=== PATIENT | female | born 1980 | race Caucasian/White ===

== ENCOUNTER 2017-04-02 17:56 | Inpatient (IN) | payer MEDICAID ==
[~2017-04-02] VITALS: Ht 154.9 cm; Wt 66.8 kg
[~2017-04-02 17:56] MED LIST: HYDR-906 PO; OMEP20CA16 PO
[2017-04-02 18:02] VITALS: Ht 154.9 cm; Wt 66.8 kg
[2017-04-02 18:04] VITALS: BP 125/73; PULSE 85; RESP 20
--- NOTE | 2017-04-02 18:58 | RADRPT ---
PROCEDURE: US OB biophysical profile. CLINICAL INDICATION: evaluation TECHNIQUE: Multiple sonographic images of the pelvis were obtained. The images were reviewed on a PACS workstation. COMPARISON: No prior studies are available for comparison. FINDINGS: There is a single viable intrauterine gestation. Cardiac activity is present with 161 beats per min britany. There is a transverse presentation to maternal left. The placenta is right lateral in location. There is no evidence of placental abruption. There is a normal amount of amniotic fluid with an DANIEL = 16.3 cm. Biophysical profile: movement 2/2 tone 2/2. breathing 2/2 DANIEL 2/2 Total 05/13 RPTAT: AA . IMPRESSION: Normal biophysical profile. Physician Linda Date Time Electronically viewed and signed by Physician Linda on 04/02/2017 18:57 /
[2017-04-02] MEDS ORDERED: LACTATED RINGER'S 1,000 ML IV SCH (19:27)
[2017-04-02] MEDS ORDERED: CARBOPROST 250 MCG INJ IM PRN ×2 (19:30→20:00)
[2017-04-02] MEDS ORDERED: CEFAZOLIN 2 GM/50 ML (PMX) 50 ML IV SCH ×2 (19:30→20:00)
[2017-04-02] MEDS ORDERED: OXYTOCIN 30 UNITS/LR 500 ML IV PRN ×2 (19:30→20:00)
[2017-04-02] MEDS ORDERED: MISOPROSTOL 200 MCG TAB PR PRN ×2 (19:30→20:00)
[2017-04-02] MEDS ORDERED: METHYLERGONOVINE 0.2 MG INJ IM PRN ×2 (19:30→20:00)
[2017-04-02] MEDS ORDERED: OXYTOCIN 30 UNITS/LR 500 ML IV SCH ×2 (19:30→20:00)
[2017-04-02] MEDS: LACTATED RINGER'S 1,000 ML IV SCH ×2 (19:56→21:33)
[2017-04-02 20:08] LABS: ADD SCAN DIFF NO
[2017-04-02 20:09] LABS: BASOPHILS % 0.4 % (0.0-2.0); EOSINOPHILS # 0.1 10^3/ul (0.0-0.5); EOSINOPHILS % 0.9 % (0.0-7.0); HEMATOCRIT 35.9 % (37.0-47.0); LYMPHOCYTES # 1.7 10^3/ul (0.8-2.9); LYMPHOCYTES % 30.3 % (15.0-51.0); MEAN CORPUSCULAR HEMOGLOBIN 28.8 pg (29.0-33.0); MEAN CORPUSCULAR HGB CONC 33.4 g/dl (32.0-37.0); MEAN CORPUSCULAR VOLUME 86.1 fl (82.0-101.0); MEAN PLATELET VOLUME 11.9 fl (7.4-10.4); MONOCYTE # 0.5 10^3/ul (0.3-0.9); MONOCYTES % 8.3 % (0.0-11.0); NEUTROPHIL # 3.3 10^3/ul (1.6-7.5); NEUTROPHILS % 58.2 % (39.0-77.0); PLATELET COUNT 200 10^3/UL (140-415); RED BLOOD COUNT 4.17 10^6/ul (4.20-5.40); RED CELL DISTRIBUTION WIDTH 15.2 % (11.5-14.5); WHITE BLOOD COUNT 5.7 10^3/ul (4.8-10.8)
[2017-04-02 20:37] LABS: INR 0.91; PROTIME 12.2 Sec (12.2-14.2)
[2017-04-02 20:38] LABS: PARTIAL THROMBOPLASTIN TIME 30.1 Sec (25.0-35.0)
[2017-04-02 20:45] LABS: ALBUMIN 3.4 g/dl (3.3-4.9); ALBUMIN/GLOBULIN RATIO 1.17; BILIRUBIN,INDIRECT 0.2 mg/dl (0-1.1); BILIRUBIN,TOTAL 0.2 mg/dl (0.2-1.3); CALCIUM 9.1 mg/dl (8.4-10.2); CREATININE 0.46 mg/dl (0.44-1.00); POTASSIUM 3.8 mmol/L (3.5-5.1); TOTAL PROTEIN 6.3 g/dl (6.1-8.1)
[2017-04-02] MEDS ORDERED: LACTATED RINGER'S 1,000 ML IV ONE (21:02)
[2017-04-02] MEDS ORDERED: FAMOTIDINE 20 MG INJ IV ONE (21:30)
[2017-04-02] MEDS ORDERED: CITRIC ACID/SODIUM CITRATE 15 ML CUP PO ONE (21:30)
[2017-04-02] MEDS ORDERED: METOCLOPRAMIDE 10 MG INJ IV ONE (21:30)
[2017-04-02] MEDS ORDERED: OXYTOCIN 30 UNITS/LR 500 ML IV ONE ×2 (21:59→22:33)
[2017-04-02] MEDS ORDERED: morphine SULFATE/PF (10 MG/10 ML) INJ ONE (21:59)
[2017-04-02] MEDS ORDERED: FENTAnyl 50 MCG/ML VIAL ONE (21:59)
--- NOTE | 2017-04-02 22:04 | HP ---
Date/Time of Note Date/Time of Note DATE: 04/02/17 TIME: 22:03 OB - History Hx of Present Free Text/Dictation 36 weeks with ROM and labor in transverse lie Care: Good Care Ultrasounds: No ultrasounds, Normal mid trimester US Obstetrical Complications: None Medical Complications: None Past Family/Social History * Past Medical, Surgical, Family and Obstetric Histories reviewed from chart. OB Admission Exam Vital Signs Vital Signs Vital Signs Date Time Temp Pulse Resp B/P Pulse Ox O2 Delivery O2 Flow Rate FiO2 04/02/17 18:04 98.4 85 20 125/73 Room Air Physical Exam HEENT: WNL Heart: Rhythm Normal Lungs: Clear, Equal Abdomen: WNL Extremities: Normal Reflexes: Normal Cervical Dilatation: 1cm Effacement: 0% Station: -2 Membranes: Ruptured Amniotic Fluid: Clear Last 72 hours Lab Results CBC & BMP 04/02/17 19:35 Liver Function Test 04/02/17 19:35 Alanine Aminotransferase (ALT/SGPT) 84 H Albumin 3.4 Alkaline Phosphatase 462 H Aspartate Amino Transf (AST/SGOT) 57 H Direct Bilirubin 0.00 Total Protein 6.3 OB Assessment/Plan Reason for admission: active labor Plan: Section KRISTIN MARKS MD Apr 02, 2017 22:04
--- NOTE | 2017-04-02 22:07 | OPR ---
Operative Report Planned Procedure Free Text/Dictation 36 weeks with ROM and transverse lie in labor Procedure date Apr 02, 2017 Performed by: KRISTIN MARKS MD Assisting provider: NOHEMY VILLASEÑOR MD Anesthesia Type: spinal Procedure Description Under satisfactory spinal anesthesia, the patient was prepped and draped and placed in a supine position, tilted to the left. Pfannenstiel incision was made , carried through the subcutaneous tissue. Bleeders brought under control with electrocautery. Fascia incised to the length of the incision. Rectus muscles from the fascia, divided midline. Peritoneum exposed, entered through a transverse incision. Exploration of abdomen revealed gravid uterus. Bladder flap was developed. Transverse incision was made in the lower segment of the uterus. Amniotic sac ruptured. clear] amniotic fluid noted. [] Nasal oropharyngeal suction was performed. The baby was handed to the team for immediate attention. The placenta was delivered manually intact. Uterine cavity was cleaned with wet sponge and drainage established. Uterus closed in 2 layers using [one monocryl] in continuous fashion. Peritoneal cavity irrigated with warm saline. Sponge, needle and instrument count reported to be correct. Fascia closed with [one monocryl], and skin closed with robi. Estimated blood loss [700]mL. Post-Procedure Findings: Live Baby [], Apgars [] and [], weight [], position [], [] presentation []cord. Specimen removed: Yes Complications: None Pt Condition post procedure: stable Physician Certification I, the undersigned physician, hereby certify that I have discussed the procedure described in this consent form with this patient (or the patient's legal route sales representative), including: * The risk and benefits of the procedure; * Any adverse reactions that may reasonably be expected to occur; * Any alternative efficacious methods of treatment which may be medically viable ; * The potential problems that may occur during recuperation; * Potential for blood transfusion and associated risks/benefits; and * Any research or economic interest I may have regarding this treatment. I further certify that the patient/legally responsible person was encouraged to ask question and that all questions were answered. KRISTIN MARKS MD Apr 02, 2017 22:06
[2017-04-02] MEDS ORDERED: EPHEDrine SULFATE 50 MG/5 ML SYG ONE (22:12)
[2017-04-02] MEDS ORDERED: ONDANSETRON 4 MG INJ ONE (22:14)
[2017-04-02] MEDS ORDERED: HYDROmorphONE (0.2 MG/ML) 10ML SYG IV PRN (22:30)
[2017-04-02] MEDS ORDERED: KETOROLAC 30 MG INJ IV PRN (22:30)
[2017-04-02] MEDS ORDERED: ONDANSETRON 4 MG INJ IV PRN (22:30)
[2017-04-02] MEDS ORDERED: PROCHLORPERAZINE 10 MG INJ IV PRN (22:30)
[2017-04-02] MEDS ORDERED: DIPHENHYDRAMINE 50 MG INJ IV PRN (22:30)
[2017-04-02] MEDS ORDERED: MEPERIDINE 25 MG INJ IV PRN (22:30)
[2017-04-02] MEDS ORDERED: FENTAnyl 50 MCG/ML VIAL IV PRN (22:30)
[2017-04-02] MEDS ORDERED: PHENYLephrine (100 MCG/ML) 5ML SYG ONE (22:31)
[2017-04-03] MEDS ORDERED: ONDANSETRON 4 MG INJ IV PRN
[2017-04-03] MEDS ORDERED: DIPHENHYDRAMINE 50 MG INJ IV PRN
[2017-04-03] MEDS ORDERED: ZOLPIDEM 5 MG TAB PO PRN
[2017-04-03] MEDS ORDERED: NALOXONE (0.4 MG/ML) INJ IV PRN
[2017-04-03] MEDS ORDERED: HYDROmorphONE 1 MG/ML SYG IV PRN ×4
[2017-04-03] MEDS ORDERED: PROCHLORPERAZINE 10 MG INJ IV PRN
[2017-04-03 01:06] LABS: BARBITURATES NEGATIVE (NEGATIVE); BENZODIAZEPINES NEGATIVE (NEGATIVE); CANNABINOIDS NEGATIVE (NEGATIVE); COCAINE NEGATIVE (NEGATIVE); OPIATES NEGATIVE (NEGATIVE)
--- NOTE | 2017-04-03 01:35 | DELSUM ---
Delivery Summary A-C Datetime Report Generated by CPN: 04/03/2017 01:35 DELIVERY PERSONNEL Pot Builder: Harry, Nancy MATERNAL INFORMATION Delivery Anesthesia: Spinal Medications in Delivery: SEE ANESTHESIA RECORDS Estimated Blood Loss (ml): 650 Placenta Cultured: No Maternal Complications: Other Other Maternal Complications: GDM DIET CONTROL LABOR SUMMARY EDC: 04/24/2017 00:00 No. Babies in Womb: 1 Attempted: No Labor Anesthesia: None LABOR INFORMATION Reason for Induction: Not Applicable Onset of Labor: 04/02/2017 18:00 Oxytocin: N/A Group B Beta Strep: UNKNOWN Antibiotics # of Doses: ANCEF 2 GRAMS Antibiotics Time of Last Dose: 04/02/2017 22:02 Steroids Given: None Reason Steroids Not Administered: Not Applicable MEMBRANES Membranes Rupture Method: Spontaneous Rupture of Membranes: 04/02/2017 17:30 Length of Rupture (hr): 4.95 Amniotic Fluid Color: Clear Amniotic Fluid Amount: Moderate Amniotic Fluid Odor: None STAGES OF LABOR Stage 3 hr: 0 Stage 3 min: 1 Total Time in Labor hr: 4 Total Time in Labor min: 28 CSECTION DELIVERY Primary Indication: TRANSVERSE PRENSENTATION Other Primary Indication: SROM @36.6 WEEKS Secondary Indication: N/A CSection Urgency: Elective CSection Incidence: Primary Labor: N/A Elective: N/A CSection Incision: Lower Uterine Transverse BABY A INFORMATION Delivery Date/Time: 04/02/2017 22:27 Method of Delivery: Born in Route : No : N/A Forceps: N/A Vacuum Extraction: N/A Shoulder Dystocia : No SHOULDER DYSTOCIA BABY A Infant Delivery Date/Time: 04/02/2017 22:27 PRESENTATION/POSITION BABY A Presentation: TRANSVERSE Cephalic Presentation: N/A Breech Presentation: N/A PLACENTA INFORMATION BABY A Placenta Delivery Time : 04/02/2017 22:28 Placenta Method of Delivery: Manual Removal Placenta Status: Delivered SCORES BABY A Heart Rate 1 min: >100 bpm Resp Effort 1 min: Good Cry Reflex Irritability 1 min: Cough/Sneeze/Pulls Away Muscle Tone 1 min: Active Motion Color 1 min: Blue/Pale Resuscitation Effort 1 min: Tactile Stimulation SCORE 1 MIN: 8 Heart Rate 5 min: >100 bpm Resp Effort 5 min: Good Cry Reflex Irritability 5 min: Cough/Sneeze/Pulls Away Muscle Tone 5 min: Active Motion Color 5 min: Body [place], Extremit Blue Resuscitation Effort 5 min: Tactile Stimulation SCORE 5 MIN: 9 INFORMATION BABY A Gestational Age at Delivery: 36.6 Gestational Status: Late - 34- 36.6 Weeks Outcome : Liveborn Infant Condition : Stable Infant Sex: Male IDENTIFICATION/MEDS BABY A ID Band Number: [id number] Sensor Applied: Yes Sensor Number: [id number] Sensor Location : Cord Clamp Vitamin K Given : Not Given Erythromycin Given: Not Given WEIGHT/LENGTH BABY A Infant Birthweight (gm): 3225 Weight (lb): 7 Infant Weight (oz): 2 Infant Length (in): 20.50 Length (cm): 52.07 CORD INFORMATION BABY A No. Cord Vessels: 3 Nuchal Cord : N/A Cord Blood Taken: Yes Infant Suction: Mouth; Nose ASSESSMENT BABY A Infant Complications: None Physical Findings at Delivery: Within Normal Limits Physical Findings- Other: voided x2 Respirations: Appears Normal Vacuum Worker/ALS Called : No Infant Care By: Sandra ESPINAL RN Transferred To: Remains with Mother
[2017-04-03 01:50] VITALS: BP 127/72; PULSE 68; RESP 18
[2017-04-03] MEDS ORDERED: NACL 0.9% 3 ML SYG IV SCH (02:00)
[2017-04-03] MEDS ORDERED: METHYLERGONOVINE 0.2 MG INJ IM PRN (02:00)
[2017-04-03] MEDS ORDERED: NA PHOSPHATE/BIPHOS 133 ML ENEMA PR PRN (02:00)
[2017-04-03] MEDS ORDERED: LANOLIN 7 GM TUBE TOP PRN (02:00)
[2017-04-03] MEDS ORDERED: OXYTOCIN 30 UNITS/LR 500 ML IV PRN (02:00)
[2017-04-03] MEDS ORDERED: MISOPROSTOL 200 MCG TAB PR PRN (02:00)
[2017-04-03] MEDS ORDERED: CARBOPROST 250 MCG INJ IM PRN (02:00)
[2017-04-03 04:00] VITALS: BP 129/63; PULSE 64; RESP 18
[2017-04-03] MEDS: OXYTOCIN 30 UNITS/LR 500 ML IV SCH ×2 (05:10→05:32)
[2017-04-03] MEDS: KETOROLAC 30 MG INJ IV PRN ×2 (05:59→18:19)
--- NOTE | 2017-04-03 06:15 | QN ---
Documentation Comment doing well vss abd soft cpm KRISTIN MARKS MD Apr 03, 2017 06:14
[2017-04-03 08:00] VITALS: BP 121/78; PULSE 66; RESP 18
[2017-04-03 08:08] LABS: ADD SCAN DIFF NO
[2017-04-03 08:16] LABS: BASOPHILS % 0.3 % (0.0-2.0); HEMATOCRIT 32.9 % (37.0-47.0); HEMOGLOBIN 10.9 g/dl (12.0-16.0); LYMPHOCYTES # 1.2 10^3/ul (0.8-2.9); LYMPHOCYTES % 11.7 % (15.0-51.0); MEAN CORPUSCULAR HEMOGLOBIN 29.1 pg (29.0-33.0); MEAN CORPUSCULAR HGB CONC 33.1 g/dl (32.0-37.0); MEAN CORPUSCULAR VOLUME 87.7 fl (82.0-101.0); MEAN PLATELET VOLUME 12.1 fl (7.4-10.4); MONOCYTE # 0.5 10^3/ul (0.3-0.9); MONOCYTES % 4.8 % (0.0-11.0); NEUTROPHIL # 8.7 10^3/ul (1.6-7.5); NEUTROPHILS % 82.5 % (39.0-77.0); PLATELET COUNT 182 10^3/UL (140-415); RED BLOOD COUNT 3.75 10^6/ul (4.20-5.40); RED CELL DISTRIBUTION WIDTH 14.9 % (11.5-14.5); WHITE BLOOD COUNT 10.5 10^3/ul (4.8-10.8)
[2017-04-03] MEDS: LACTATED RINGER'S 1,000 ML IV SCH ×4 (09:32→21:02)
[2017-04-03 12:00] VITALS: BP 95/56; PULSE 65; RESP 16
[2017-04-03 16:00] VITALS: BP 103/58; PULSE 71
[2017-04-03 19:40] VITALS: BP 99/58; PULSE 79; RESP 18
[2017-04-03] MEDS: IBUPROFEN 800 MG TAB PO SCH (22:00)
[2017-04-03] MEDS ORDERED: ACETAMINOPHEN/CODEINE #3 TAB PO PRN (22:10)
[2017-04-04] MEDS: OXYCODONE/ACETAMINOPHEN (5/325) TAB PO PRN ×3 (01:48→16:49)
[2017-04-04 03:55] VITALS: BP 112/58; PULSE 66; RESP 20
[2017-04-04] MEDS: IBUPROFEN 800 MG TAB PO SCH ×3 (05:53→20:14)
[2017-04-04 08:00] VITALS: BP 108/66; PULSE 57; RESP 18
[2017-04-04] MEDS: LACTATED RINGER'S 1,000 ML IV SCH ×2 (09:32→17:32)
--- NOTE | 2017-04-04 09:51 | PN ---
Date/Time of Note Date/Time of Note DATE: 04/04/17 TIME: 09:48 OB Subjective Subjective Subjective April 04, 2017 Hospital visit Post day 2 Patient is doing well, Ambulatory She is afebrile Abdomen is soft , Fundus is firm Moderate amount of lochia Breasts are soft, Nipples are intact No calf tenderness. Incision is healing well Breast feeding the new born. Current Medications Medications (Trade) Dose Ordered Sig/Chris Route PRN Reason Start Time Stop Time Status Last Admin Dose Admin Lactated Ringer's 1,000 ml @ 125 mls/hr Q8H IV 04/02/17 19:27 04/02/17 19:46 DC Cefazolin Sodium/ Dextrose 50 ml @ 100 mls/hr ONCE IV 04/02/17 19:30 04/02/17 19:46 DC Oxytocin/Lactated Ringer's 500 ml @ 125 mls/hr ONCE IV 04/02/17 19:30 04/02/17 19:46 DC Oxytocin/Lactated Ringer's 500 ml @ 0 mls/hr ONCE PRN IV For Hemorrhage Management 04/02/17 19:30 04/02/17 19:46 DC Methylergonovine Maleate (Methergine) 0.2 mg ONCE PRN IM VAGINAL BLEEDING 04/02/17 19:30 04/02/17 19:46 DC Carboprost Tromethamine (Hemabate) 250 mcg ONCE PRN IM VAGINAL BLEEDING 04/02/17 19:30 04/02/17 19:46 DC Misoprostol 1000 mcg 1,000 mcg ONCE PRN ND VAGINAL BLEEDING 04/02/17 19:30 04/02/17 19:46 DC Lactated Ringer's 1,000 ml @ 125 mls/hr Q8H IV 04/02/17 19:48 04/03/17 01:36 DC 04/02/17 21:33 Cefazolin Sodium/ Dextrose 50 ml @ 100 mls/hr ONCE IV 04/02/17 20:00 04/03/17 01:36 DC Oxytocin/Lactated Ringer's 500 ml @ 125 mls/hr ONCE IV 04/02/17 20:00 04/03/17 01:36 DC 04/03/17 00:06 Oxytocin/Lactated Ringer's 500 ml @ 0 mls/hr ONCE PRN IV For Hemorrhage Management 04/02/17 20:00 04/03/17 01:36 DC Methylergonovine Maleate (Methergine) 0.2 mg ONCE PRN IM VAGINAL BLEEDING 04/02/17 20:00 04/03/17 01:37 DC Carboprost Tromethamine (Hemabate) 250 mcg ONCE PRN IM VAGINAL BLEEDING 04/02/17 20:00 04/03/17 01:37 DC Misoprostol 1000 mcg 1,000 mcg ONCE PRN ND VAGINAL BLEEDING 04/02/17 20:00 04/03/17 01:37 DC Lactated Ringer's (Lr) 1,000 ml @ 1,000 mls/hr Q1H ONCE IV 04/02/17 21:02 04/02/17 22:01 DC 04/02/17 21:34 Citric Acid/ Sodium Citrate (Bicitra) 30 ml PRE-PROCEDURE ONCE PO 04/02/17 21:30 04/02/17 21:31 DC 04/02/17 21:51 Famotidine (Pepcid Iv) 20 mg pre-procedure ONCE IV 04/02/17 21:30 04/02/17 21:31 DC 04/02/17 21:51 Metoclopramide HCl 10 mg 10 mg ONCE ONCE IV 04/02/17 21:30 04/02/17 21:31 DC 04/02/17 21:51 Oxytocin/Lactated Ringer's 500 ml @ ud STK-MED ONCE IV 04/02/17 21:59 04/02/17 22:00 DC Fentanyl (Sublimaze) 100 mcg STK-MED ONCE .ROUTE 04/02/17 21:59 04/02/17 22:00 DC Morphine Sulfate (Duramorph) 10 mg STK-MED ONCE .ROUTE 04/02/17 21:59 04/02/17 22:00 DC Ephedrine Sulfate 50 mg STK-MED ONCE .ROUTE 04/02/17 22:12 04/02/17 22:13 DC Ondansetron HCl (Zofran Inj) 4 mg STK-MED ONCE .ROUTE 04/02/17 22:14 04/02/17 22:15 DC Hydromorphone HCl (Dilaudid (Rec)) 0.4 mg PACU ORDER PRN IV PAIN 04/02/17 22:30 04/03/17 01:36 DC Fentanyl (Sublimaze) 25 mcg PACU ORDER PRN IV PAIN 04/02/17 22:30 04/03/17 01:36 DC Ketorolac Tromethamine (Toradol) 30 mg PACU ORDER PRN IV PAIN 04/02/17 22:30 04/03/17 01:36 DC 04/03/17 00:26 Ondansetron HCl (Zofran Inj) 4 mg PACU ORDER PRN IV NAUSEA AND/OR VOMITING 04/02/17 22:30 04/03/17 01:37 DC 04/03/17 01:32 Prochlorperazine (Compazine Inj) 5 mg PACU ORDER PRN IV NAUSEA AND/OR VOMITING 04/02/17 22:30 04/03/17 01:37 DC Meperidine HCl (Demerol) 25 mg PACU ORDER PRN IV POST-OP RIGORS 04/02/17 22:30 04/03/17 01:37 DC Diphenhydramine HCl (Benadryl) 25 mg PACU ORDER PRN IV PRURITUS 04/02/17 22:30 04/03/17 01:37 DC Phenylephrine HCl 500 mcg 500 mcg STK-MED ONCE .ROUTE 04/02/17 22:31 04/02/17 22:32 DC Oxytocin/Lactated Ringer's 500 ml @ ud STK-MED ONCE IV 04/02/17 22:33 04/02/17 22:34 DC Naloxone HCl (Narcan) 0.1 mg Q2M PRN IV FOR RESP RATE 8 OR LESS 04/03/17 00:00 04/03/17 22:09 DC Ketorolac Tromethamine (Toradol) 30 mg Q6H PRN IV PAIN 04/03/17 00:00 04/03/17 22:09 DC 04/03/17 18:19 Hydromorphone HCl (Dilaudid) 0.2 mg Q3H PRN IV PAIN LEVEL 1-5 04/03/17 00:00 04/03/17 00:00 DC Hydromorphone HCl (Dilaudid) 0.4 mg Q3H PRN IV PAIN LEVEL 6-10 04/03/17 00:00 04/03/17 00:00 DC Diphenhydramine HCl (Benadryl) 25 mg Q6H PRN IV ITCHING 04/03/17 00:00 04/03/17 22:09 DC Ondansetron HCl (Zofran Inj) 4 mg Q6H PRN IV NAUSEA AND/OR VOMITING 04/03/17 00:00 04/03/17 22:09 DC Prochlorperazine (Compazine Inj) 10 mg ONCE PRN IV NAUSEA AND/OR VOMITING 04/03/17 00:00 04/03/17 22:09 DC Zolpidem Tartrate (Ambien) 5 mg HS MAY REPEAT X 1 PRN PO INSOMNIA 04/03/17 00:00 04/03/17 22:09 DC Miscellaneous Information (* Miscellaneous Pharmacy Order) Duramorph: 0.2 mg Spi... GIVEN XX 04/03/17 00:00 04/03/17 01:36 DC Hydromorphone HCl (Dilaudid) 0.4 mg Q3H PRN IV PAIN LEVEL 1-5 04/03/17 00:00 04/03/17 22:09 DC Hydromorphone HCl 0.6 mg 0.6 mg Q3H PRN IV PAIN LEVEL 6-10 04/03/17 00:00 04/03/17 22:09 DC Lactated Ringer's (Lr) 1,000 ml @ 125 mls/hr Q8H IV 04/03/17 01:32 04/03/17 21:02 IV Flush 3 ml 3 ml PER PROTOCOL IV 04/03/17 02:00 Oxytocin/Lactated Ringer's 500 ml @ 125 mls/hr Q4H IV 04/03/17 01:32 04/03/17 09:31 DC 04/03/17 05:10 Acetaminophen/ Codeine Phosphate (Tylenol No.3) 2 tab Q4H PRN PO PAIN LEVEL 7-10 04/03/17 22:10 Oxycodone/ Acetaminophen (Percocet (5/ 325)) 2 tab Q4H PRN PO PAIN LEVEL 7-10 04/03/17 22:10 04/04/17 01:48 Ibuprofen (Motrin) 800 mg Q8 PO 04/03/17 22:00 04/04/17 05:53 Simethicone (Mylicon) 160 mg Q8H PRN PO DISTENSION/GAS/BLOATING 04/03/17 02:00 Sodium Biphosphate/ Sodium Phosphate (Fleet Enema) 133 ml DAILY PRN ND CONSTIPATION 04/03/17 02:00 Lanolin (Ktv-Q-Llrpat) 1 applic BEDSIDE MEDICATION PRN TOP BEDSIDE FOR LARRY TO NIPPLES 04/03/17 02:00 Diphtheria/ Tetanus/Acell Pertussis (Adacel) 0.5 ml ONCE ONCE IM* 04/05/17 09:00 04/05/17 09:01 Measles/Mumps/ Rubella Vaccine Live 0.5 ml 0.5 ml ONCE ONCE SC* 04/05/17 09:00 04/05/17 09:01 Oxytocin/Lactated Ringer's 500 ml @ 0 mls/hr ONCE PRN IV For Hemorrhage Management 04/03/17 02:00 Methylergonovine Maleate (Methergine) 0.2 mg ONCE PRN IM VAGINAL BLEEDING 04/03/17 02:00 Carboprost Tromethamine (Hemabate) 250 mcg ONCE PRN IM VAGINAL BLEEDING 04/03/17 02:00 Misoprostol (Cytotec) 1,000 mcg ONCE PRN ND VAGINAL BLEEDING 04/03/17 02:00 MAGUE MANSFIELD MD Apr 04, 2017 09:51
[2017-04-04 12:03] LABS: RUBELLA ANTIBODY - IGG 4.36 index
[2017-04-04 16:00] VITALS: BP 106/61; PULSE 60; RESP 18
[2017-04-04] MEDS: SENNA TAB PO SCH (20:14)
[2017-04-04 20:30] VITALS: BP 122/81; PULSE 67; RESP 18
[2017-04-05] MEDS: OXYCODONE/ACETAMINOPHEN (5/325) TAB PO PRN (00:44)
[2017-04-05] MEDS: IBUPROFEN 800 MG TAB PO SCH ×2 (05:04→11:54)
[2017-04-05 05:27] VITALS: BP 95/56; PULSE 61; RESP 18
[2017-04-05] MEDS: LACTATED RINGER'S 1,000 ML IV SCH (05:37)
[2017-04-05 08:00] VITALS: BP 114/68; PULSE 71; RESP 18
[2017-04-05] MEDS ORDERED: MEASLES,MUMPS,RUBELLA VACCINE INJ SC* ONE (09:00)
[2017-04-05] MEDS ORDERED: DIPHTH/TET/ACEL PERTUSS (ADULT) 0.5 ML VIAL IM* ONE (09:00)
[2017-04-05] MEDS: SENNA TAB PO SCH (09:36)
--- NOTE | 2017-04-05 13:58 | QN ---
Documentation Comment POD#3 is stable afebrile tolerates diet No VB +Voids +BM VS stable Gen NAD Abd soft NT ND incision is healing well Genitalia No blood at perinium --->discharge plan tomorrow --->ambulation ARTI MONDRAGON M.D. Apr 05, 2017 13:58
--- NOTE | 2017-04-05 13:59 | DS ---
Date/Time of Note Date/Time of Note DATE: 04/05/17 TIME: 13:58 Discharge Summary Admission/Discharge Info Admit Date/Time Apr 02, 2017 at 19:04 Discharge Date/Time Discharge Diagnosis post c/ection Patient Condition: Stable Procedures Repeat c/section Hospital Course uneventful Home Meds Active Scripts Hydrocodone/Acetaminophen (Eleele 5-325 Tablet) 1 Each Tablet, 1 TAB PO Q6H Y for PAIN, #7 TAB Prov:YESSENIA SANTIAGO PA-C 07/13/16 Reported Medications Omeprazole* (Omeprazole*) 20 Mg Capsule., 20 MG PO DAILY, CAP 11/23/14 Primary Care Provider Not On Staff Doctor ARTI MONDRAGON M.D. Apr 05, 2017 13:59
== END 2017-04-05 16:00 | disposition home or self-care (01) | DRG 766 ==
LOC: OBT 17:56 → L-D 17:57 → OBT 19:04 → L-D 19:04 → PP1 04-03 01:53
PROVIDERS: ADMIT Obstetrics & Gynecology; ATTEND Obstetrics & Gynecology
PROC: 10D00Z1 Extraction of Products of Conception, Low, Open Approach (ICD-10-PCS; principal; 2017-04-02 22:00)
DX: O60.14X0 Preterm labor third trimester with preterm delivery third trimester, not applicable or unspecified (principal); O32.2XX0 Maternal care for transverse and oblique lie, not applicable or unspecified; Z3A.36 36 weeks gestation of pregnancy; Z37.0 Single live birth
CPT/HCPCS: 76818; 80053; 80307; 84112; 85025; 85610; 85730; 86592; 86703; 86762; 86850; 86900; 86901; 87340; 88307; 90715; 94760; 99464; G0463; J0690; J1885; J2274; J2370; J2405; J2590; J2765; J3010; J7120